=== PATIENT | male | born 1955 ===

== ENCOUNTER 2021-11-13 10:45 | Inpatient (IN) | payer OTHER ==
[~2021-11-13] VITALS: Ht 167.6 cm; Wt 61.2 kg
[2021-11-13] MEDS ORDERED: LOSARTAN-HCTZ1 EAC1 PO (14:07)
[2021-11-13] MEDS ORDERED: NORVASC5 MG PO (14:08)
== END 2021-11-19 18:59 | disposition home or self-care (01) | DRG 330 ==
LOC: SURH 11-17 10:45 → O/R 11-17 19:08 → SURH 11-17 19:08
PROVIDERS: ADMIT Colon & Rectal Surgery; ATTEND Colon & Rectal Surgery
PROC: 0DBP4ZZ Excision of Rectum, Percutaneous Endoscopic Approach (ICD-10-PCS; 2021-11-17)
PROC: 0DTN4ZZ Resection of Sigmoid Colon, Percutaneous Endoscopic Approach (ICD-10-PCS; principal; 2021-11-17 14:45)
DX: K57.32 Diverticulitis of large intestine without perforation or abscess without bleeding (principal); K92.1 Melena; I10 Essential (primary) hypertension